=== PATIENT | male | born 1990 | race Caucasian/White ===

== ENCOUNTER 2017-04-14 15:53 | Emergency (ER) | payer BC ==
[~2017-04-14] VITALS: Ht 185.4 cm; Wt 95.0 kg
[~2017-04-14 15:53] MED LIST: HALDOL
[2017-04-14 15:58] VITALS: Ht 185.4 cm; Wt 95.0 kg
--- OUTSIDE RECORDS SUMMARY | 2017-04-14 15:58 | XMS REPORT | Continuity of Care Document ---
Author Author [facility] Organization [facility] Address Unknown Phone Unavailable Support Name Relationship Address Phone GREGG CLEMENT DO Caregiver [facility] [address] [facility] [place] [address] [place] [address] RAMIREZJEN COON Next Of Kin [address] [place] [address] Insurance Providers Payer Name Policy Number Subscriber Name Relationship [facility] [place] [id number] Evelin Vines 20 Son Problems Medical Problems Problem Onset Date Status Renal stones Unknown Active Flank pain Unknown Active Renal stones Unknown Active Renal stones Unknown Active Flank pain Unknown Active Migraine equivalent Unknown Active Migraine equivalent Unknown Active Medications Medication Dose Route Sig Days/Qty Instructions Order Date Discontinued Date Status [Haldol] 7.5 Meq DAILY 09/15/14 Active Social History Social History Problem Response Recorded Date/Time Hx Substance Use No 11/30/2014 4:50pm Hx Alcohol Use No 11/30/2014 4:50pm Tobacco Usage none 09/15/2014 2:18pm Query Response Start Date Stop Date Smoking Status Current every day smoker Hospital Discharge Instructions No hospital discharge instructions. Plan of Care No plan of care. Functional Status Query Response Date Recorded Physical Hygiene Self November 30, 2014 4:50pm Disabilities None November 30, 2014 4:50pm Devices Used None November 30, 2014 4:50pm Dressing Self November 30, 2014 4:50pm Ambulation Self November 30, 2014 4:50pm Diet Self November 30, 2014 4:50pm Mental Status Alert Oriented November 30, 2014 5:51pm Disabilities None November 30, 2014 4:50pm Devices Used None November 30, 2014 4:50pm Physical Hygiene Self November 30, 2014 4:50pm Dressing Self November 30, 2014 4:50pm Ambulation Self November 30, 2014 4:50pm Diet Self November 30, 2014 4:50pm Allergies, Adverse Reactions, Alerts Allergen Type Severity Reaction Status Last Updated No Known Allergies Active 11/30/14 Immunizations Name Given Type Hx Influenza Vaccination No Historical Hx Influenza Vaccination No Historical Vital Signs Acute Vital Signs Vital Response Date/Time Temperature (Fahrenheit) 98.6 deg F (96.8 - 99.1) Temperature (Calculated Celsius) 37.48404 degrees C (36.0 - 37.3) Pulse Rate (adult) 80 bpm (60 - 100) Respiratory Rate 16 breaths/min (10 - 20) O2 Sat by Pulse Oximetry 96 % (90 - 100) Blood Pressure 130/62 mm Hg Height 6 ft 1 in Weight 222 lb Body Mass Index 29.0 kg/m^2 Results Test Source Date Result Interp. Ref. Range Comments Monoscreen November 30, 2014 3:50pm Negative - Alanine Aminotransferase (ALT/SGPT) November 30, 2014 3:50pm 33 U/L N 21- 72 Albumin November 30, 2014 3:50pm 3.9 G/DL N 3.5-5.0 Albumin/Globulin Ratio November 30, 2014 3:50pm 1.5 RATIO N 1.1-2.2 Alkaline Phosphatase November 30, 2014 3:50pm 59 U/L N 38-126 Amylase Level September 15, 2014 1:25pm 56 U/L N 30-110 Anion Gap November 30, 2014 3:50pm 9 MEQ/L N 5-15 Aspartate Amino Transf (AST/SGOT) November 30, 2014 3:50pm 33 U/L N 17- 59 BUN/Creatinine Ratio November 30, 2014 3:50pm 13 RATIO N 6-26 Basophils # (Auto) November 30, 2014 3:50pm 0.2 T/MM3 N 0-0.2 Basophils (%) (Auto) November 30, 2014 3:50pm 3.1 % H 0-2 Blood Urea Nitrogen November 30, 2014 3:50pm 12.0 MG/DL N 9-20 C-Reactive Protein November 30, 2014 3:50pm 28.0 MG/L H 0-9 Calcium Level November 30, 2014 3:50pm 9.1 MG/DL N 8.4-10.2 Calculated Osmolality November 30, 2014 3:50pm 273 MOSM/KG N 261-280 Carbon Dioxide Level November 30, 2014 3:50pm 29 MEQ/L N 22-30 Chemistry Specimen Hemolysis November 30, 2014 3:50pm < 15 0-25 0-25: No Hemolysis.26-70: Slight Hemolysis - can falsely elevate K and Urine Protein. 71-285: Moderate Hemolysis - can falsely elevate K, Troponin I, CA 19-9, PTH, CSF GLucose, and Urine Protein, and can falsely decrease Phenytoin. 286-999: Gross Hemolysis - can falsely elevate K, Troponin I, CA 19-9, PTH, CSF Glucose, and Urine Protine, and can falsely decrease Phenytoin. Recommend specimen recollection. Chloride Level November 30, 2014 3:50pm 104 MEQ/L N 98-107 Creatinine November 30, 2014 3:50pm 0.9 MG/DL N 0.8-1.5 Eosinophils # (Auto) November 30, 2014 3:50pm 0.3 T/MM3 N 0-0.5 Eosinophils (%) (Auto) November 30, 2014 3:50pm 5.1 % H 0-4 Globulin November 30, 2014 3:50pm 2.6 G/DL N 2.4-3.6 Glomerular Filtration Rate Calc November 30, 2014 3:50pm 105 - Glucose Level November 30, 2014 3:50pm 102 MG/DL N 75-110 Hematocrit November 30, 2014 3:50pm 43.8 % N 41-53 Hemoglobin November 30, 2014 3:50pm 15.4 GM/DL N 13.5-17.5 Icterus Index November 30, 2014 3:50pm < 2 0-7 Immature Granulocyte # (Auto) November 30, 2014 3:50pm 0.05 T/MM3 H 0.00- 0.03 Immature Granulocyte % (Auto) November 30, 2014 3:50pm 1.0 % H 0.0-0.5 Lipase September 15, 2014 1:25pm 54 U/L N 23-300 Lymphocytes # (Auto) November 30, 2014 3:50pm 1.3 T/MM3 N 1-4.8 Lymphocytes (%) (Auto) November 30, 2014 3:50pm 26.7 % N 23-45 Mean Corpuscular Hemoglobin November 30, 2014 3:50pm 30.4 UUG N 26-34 Mean Corpuscular Hemoglobin Concent November 30, 2014 3:50pm 35.2 GM/DL N 31-37 Mean Corpuscular Volume November 30, 2014 3:50pm 86.6 UM3 N 80-100 Mean Platelet Volume November 30, 2014 3:50pm 10.2 UM3 N 9.4-12.4 Monocytes # (Auto) November 30, 2014 3:50pm 0.6 T/MM3 N 0-0.8 Monocytes (%) (Auto) November 30, 2014 3:50pm 13.1 % H 0-9.0 Neutrophils # (Auto) November 30, 2014 3:50pm 2.5 T/MM3 N 1.8-7.7 Neutrophils (%) (Auto) November 30, 2014 3:50pm 51.0 % N 33-66 Platelet Count November 30, 2014 3:50pm 171 T/MM3 N 130-400 Potassium Level November 30, 2014 3:50pm 3.8 MEQ/L N 3.6-5 RDW Standard Deviation November 30, 2014 3:50pm 40.1 FL N 36.9-50.2 Red Blood Count November 30, 2014 3:50pm 5.06 M/MM3 N 4.50-5.90 Sodium Level November 30, 2014 3:50pm 142 MEQ/L N 134-144 Total Bilirubin November 30, 2014 3:50pm 0.50 MG/DL N 0.20-1.30 Total Protein November 30, 2014 3:50pm 6.5 G/DL N 6.3-8.2 Turbidity November 30, 2014 3:50pm < 20 0-20 Urinalysis Comment September 16, 2014 9:30am Microscopic not ind. - Has specimen been collected/obtained? Y Urine Bacteria September 15, 2014 2:40pm 2+ H - Has specimen been collected/obtained? Y Urine Bilirubin September 16, 2014 9:30am Negative - Has specimen been collected/obtained? Y Urine Blood September 16, 2014 9:30am Trace-lysed H - Has specimen been collected/obtained? Y Urine Collection Type September 16, 2014 9:30am Voided-not cc-midstr - Has specimen been collected/obtained? Y Urine Color September 16, 2014 9:30am Yellow - Has specimen been collected/obtained? Y Urine Culture Indicated September 15, 2014 2:40pm Cult not indicated - Has specimen been collected/obtained? Y Urine Glucose (UA) September 16, 2014 9:30am Negative - Has specimen been collected/obtained? Y Urine Ketones September 16, 2014 9:30am Negative - Has specimen been collected/obtained? Y Urine Leukocyte Esterase September 16, 2014 9:30am Negative - Has specimen been collected/obtained? Y Urine Nitrite September 16, 2014 9:30am Negative - Has specimen been collected/obtained? Y Urine Protein September 16, 2014 9:30am Negative - Has specimen been collected/obtained? Y Urine RBC September 15, 2014 2:40pm 10-20 /HPF H - Has specimen been collected/obtained? Y Urine Specific [place] September 16, 2014 9:30am >=1.030 H - Has specimen been collected/obtained? Y Urine Squamous Epithelial Cells September 15, 2014 2:40pm 0-5 - Has specimen been collected/obtained? Y Urine Turbidity September 16, 2014 9:30am Clear - Has specimen been collected/obtained? Y Urine Urobilinogen September 16, 2014 9:30am 0.2 EU/DL - Has specimen been collected/obtained? Y Urine WBC September 15, 2014 2:40pm 1-3 /HPF - Has specimen been collected/obtained? Y Urine pH September 16, 2014 9:30am 6.0 - Has specimen been collected/ obtained? Y White Blood Count November 30, 2014 3:50pm 4.9 T/MM3 N 4.5-11.0 Name: DORA VINES Unit #: [id number] : 1990 Sex: M [facility] [place]: ED DOS: 09/15/14 Signed Report #: [id number] DIAGNOSTIC IMAGING REPORT TYPE OF EXAM: CT RENAL W/O CONTRAST Dictated By: MAGALY LAU MD INDICATION: ITS.REASON: left flank pain CT RENAL W/O CONTRAST: Comparison: None Technique: Axial CT images were performed through the abdomen and pelvis without intravenous contrast. Findings: The lung bases are clear. The unenhanced liver is within normal limits. Gallbladder, spleen, pancreas and adrenal glands are within normal limits. Bilateral small nonobstructing renal stones. No hydronephrosis. No ureteral stones. Bladder appears normal. Prostate and rectum are normal. No bowel obstruction. Bone windows are unremarkable. Impression: Bilateral nonobstructing renal stones. No ureteral stones or clear etiology for the patient's left flank pain. There is a preliminary report by virtual radiologic. . Procedures Procedure Status Date Provider(s) HYDRATE IV INFUSION ADD-ON completed 09/15/14 THER/PROPH/DIAG INJ IV PUSH completed 09/15/14 TX/PRO/DX INJ NEW DRUG ADDON completed 09/15/14 HYDRATE IV INFUSION ADD-ON completed 09/16/14 THER/PROPH/DIAG INJ IV PUSH completed 09/16/14 TX/PRO/DX INJ NEW DRUG ADDON completed 09/16/14 Encounters Encounter Location Date/Time Registered Emergency Room [facility] 11/30/14 2:57pm Departed Emergency Room [facility] 09/16/14 7:17am Departed Emergency Room [facility] 09/15/14 1:01pm Recent Diagnosis
--- OUTSIDE RECORDS SUMMARY | 2017-04-14 15:58 | XMS REPORT | Continuity of Care Document ---
Author Author [facility] Organization [facility] Address Unknown Phone Unavailable Support Name Relationship Address Phone SEBAS TATE MD Caregiver [address] [place] [address] [place] [phone] [place] [address] JAMESJEN Next Of Kin [address] [place] [address] Insurance Providers Payer Name Policy Number Subscriber Name Relationship [facility] [id number] Evelin Vines 20 Son Problems Medical Problems Problem Onset Date Status Renal stones Unknown Active Flank pain Unknown Active Renal stones Unknown Active Medications Medication Dose Route Sig Days/Qty Instructions Order Date Discontinued Date Status [Haldol] 5 Meq DAILY 09/15/14 Active [place] Carbonate BEDTIME 09/15/14 Active Ciprofloxacin HCl 1 Tab PO TWICE A DAY 10 Qty 09/15/14 Active Social History Social History Problem Response Recorded Date/Time Smoking Status Heavy Smoker 09/15/2014 1:12pm When did patient START smoking? AGE 16 09/15/2014 1:12pm Hx Substance Use No 09/15/2014 1:12pm Hx Alcohol Use No 09/15/2014 1:12pm Hospital Discharge Instructions No hospital discharge instructions. Plan of Care No plan of care. Functional Status Query Response Date Recorded Physical Hygiene Self September 15, 2014 1:12pm Disabilities None September 15, 2014 1:12pm Devices Used None September 15, 2014 1:12pm Dressing Self September 15, 2014 1:12pm Ambulation Self September 15, 2014 1:12pm Diet Self September 15, 2014 1:12pm Mental Status Alert Oriented September 15, 2014 3:28pm Disabilities None September 15, 2014 1:12pm Devices Used None September 15, 2014 1:12pm Physical Hygiene Self September 15, 2014 1:12pm Dressing Self September 15, 2014 1:12pm Ambulation Self September 15, 2014 1:12pm Diet Self September 15, 2014 1:12pm Allergies, Adverse Reactions, Alerts Allergen Type Severity Reaction Status Last Updated No Known Allergies Active 09/15/14 Immunizations Name Given Type Hx Influenza Vaccination No Historical Hx Influenza Vaccination No Historical Vital Signs Acute Vital Signs Vital Response Date/Time Temperature (Fahrenheit) 97.7 deg F (96.8 - 99.1) Temperature (Calculated Celsius) 36.54148 degrees C (36.0 - 37.3) Pulse Rate (adult) 65 bpm (60 - 100) Respiratory Rate 20 breaths/min (10 - 20) O2 Sat by Pulse Oximetry 97 % (90 - 100) Blood Pressure 120/77 mm Hg Height 6 ft 1 in Weight 222 lb Body Mass Index 29.0 kg/m^2 Results Test Source Date Result Interp. Ref. Range Comments Alanine Aminotransferase (ALT/SGPT) September 15, 2014 1:25pm 31 U/L N 21- 72 Albumin September 15, 2014 1:25pm 4.2 G/DL N 3.5-5.0 Albumin/Globulin Ratio September 15, 2014 1:25pm 1.5 RATIO N 1.1-2.2 Alkaline Phosphatase September 15, 2014 1:25pm 58 U/L N 38-126 Amylase Level September 15, 2014 1:25pm 56 U/L N 30-110 Anion Gap September 15, 2014 1:25pm 13 MEQ/L N 5-15 Aspartate Amino Transf (AST/SGOT) September 15, 2014 1:25pm 30 U/L N 17- 59 BUN/Creatinine Ratio September 15, 2014 1:25pm 12 RATIO N 6-26 Basophils # (Auto) September 15, 2014 1:25pm 0.1 T/MM3 N 0-0.2 Basophils (%) (Auto) September 15, 2014 1:25pm 1.5 % N 0-2 Blood Urea Nitrogen September 15, 2014 1:25pm 12.0 MG/DL N 9-20 Calcium Level September 15, 2014 1:25pm 9.5 MG/DL N 8.4-10.2 Calculated Osmolality September 15, 2014 1:25pm 273 MOSM/KG N 261-280 Carbon Dioxide Level September 15, 2014 1:25pm 25 MEQ/L N 22-30 Chloride Level September 15, 2014 1:25pm 104 MEQ/L N 98-107 Creatinine September 15, 2014 1:25pm 1.0 MG/DL N 0.8-1.5 Eosinophils # (Auto) September 15, 2014 1:25pm 0.3 T/MM3 N 0-0.5 Eosinophils (%) (Auto) September 15, 2014 1:25pm 4.3 % H 0-4 Globulin September 15, 2014 1:25pm 2.8 G/DL N 2.4-3.6 Glucose Level September 15, 2014 1:25pm 101 MG/DL N 75-110 Hematocrit September 15, 2014 1:25pm 49.3 % N 41-53 Hemoglobin September 15, 2014 1:25pm 16.9 GM/DL N 13.5-17.5 Lipase September 15, 2014 1:25pm 54 U/L N 23-300 Lymphocytes # (Auto) September 15, 2014 1:25pm 1.6 T/MM3 N 1-4.8 Lymphocytes (%) (Auto) September 15, 2014 1:25pm 21.7 % L 23-45 Mean Corpuscular Hemoglobin September 15, 2014 1:25pm 30.1 UUG N 26-34 Mean Corpuscular Hemoglobin Concent September 15, 2014 1:25pm 34.3 GM/DL N 31-37 Mean Corpuscular Volume September 15, 2014 1:25pm 87.7 UM3 N 80-100 Mean Platelet Volume September 15, 2014 1:25pm 10.9 UM3 N 9.4-12.4 Monocytes # (Auto) September 15, 2014 1:25pm 0.7 T/MM3 N 0-0.8 Monocytes (%) (Auto) September 15, 2014 1:25pm 9.2 % H 0-9.0 Neutrophils # (Auto) September 15, 2014 1:25pm 4.7 T/MM3 N 1.8-7.7 Neutrophils (%) (Auto) September 15, 2014 1:25pm 63.0 % N 33-66 Platelet Count September 15, 2014 1:25pm 228 T/MM3 N 130-400 Potassium Level September 15, 2014 1:25pm 4.1 MEQ/L N 3.6-5 RDW Standard Deviation September 15, 2014 1:25pm 42.8 FL N 36.9-50.2 Red Blood Count September 15, 2014 1:25pm 5.62 M/MM3 N 4.50-5.90 Sodium Level September 15, 2014 1:25pm 142 MEQ/L N 134-144 Total Bilirubin September 15, 2014 1:25pm 0.90 MG/DL N 0.20-1.30 Total Protein September 15, 2014 1:25pm 7.0 G/DL N 6.3-8.2 Urine Bacteria September 15, 2014 2:40pm 2+ H - Has specimen been collected/obtained? Y Urine Bilirubin September 15, 2014 2:40pm Negative - Has specimen been collected/obtained? Y Urine Blood September 15, 2014 2:40pm 1+ H - Has specimen been collected/ obtained? Y Urine Collection Type September 15, 2014 2:40pm Cleancatch-midstream - Has specimen been collected/obtained? Y Urine Color September 15, 2014 2:40pm Yellow - Has specimen been collected/obtained? Y Urine Culture Indicated September 15, 2014 2:40pm Cult not indicated - Has specimen been collected/obtained? Y Urine Glucose (UA) September 15, 2014 2:40pm Negative - Has specimen been collected/obtained? Y Urine Ketones September 15, 2014 2:40pm Negative - Has specimen been collected/obtained? Y Urine Leukocyte Esterase September 15, 2014 2:40pm Negative - Has specimen been collected/obtained? Y Urine Nitrite September 15, 2014 2:40pm Negative - Has specimen been collected/obtained? Y Urine Protein September 15, 2014 2:40pm Negative - Has specimen been collected/obtained? Y Urine RBC September 15, 2014 2:40pm 10-20 /HPF H - Has specimen been collected/obtained? Y Urine Specific [place] September 15, 2014 2:40pm 1.010 L - Has specimen been collected/obtained? Y Urine Squamous Epithelial Cells September 15, 2014 2:40pm 0-5 - Has specimen been collected/obtained? Y Urine Turbidity September 15, 2014 2:40pm Clear - Has specimen been collected/obtained? Y Urine Urobilinogen September 15, 2014 2:40pm 0.2 EU/DL - Has specimen been collected/obtained? Y Urine WBC September 15, 2014 2:40pm 1-3 /HPF - Has specimen been collected/obtained? Y Urine pH September 15, 2014 2:40pm 7.0 - Has specimen been collected/ obtained? Y White Blood Count September 15, 2014 1:25pm 7.4 T/MM3 N 4.5-11.0 Chemistry Specimen Hemolysis September 15, 2014 1:25pm 55 H 0-25 0-25: No Hemolysis.26-70: Slight Hemolysis - can falsely elevate K and Urine Protein. 71-285: Moderate Hemolysis - can falsely elevate K, Troponin I, CA 19-9, PTH, CSF GLucose, and Urine Protein, and can falsely decrease Phenytoin. 286-999: Gross Hemolysis - can falsely elevate K, Troponin I, CA 19-9, PTH, CSF Glucose, and Urine Protine, and can falsely decrease Phenytoin. Recommend specimen recollection. Turbidity September 15, 2014 1:25pm < 20 0-20 Glomerular Filtration Rate Calc September 15, 2014 1:25pm 93 - Immature Granulocyte # (Auto) September 15, 2014 1:25pm 0.02 T/MM3 N 0.00- 0.03 Immature Granulocyte % (Auto) September 15, 2014 1:25pm 0.3 % N 0.0-0.5 Icterus Index September 15, 2014 1:25pm < 2 0-7 Procedures No known history of procedures. Encounters Encounter Location Date/Time Departed Emergency Room [facility] 09/15/14 1:01pm Recent Diagnosis
--- OUTSIDE RECORDS SUMMARY | 2017-04-14 15:58 | XMS REPORT | Continuity of Care Document ---
Author Author [facility] Address Unknown Phone Unavailable Allergies Active Description Code Type Severity Reaction Onset Reported/Identified Relationship to Patient Clinical Status Yes No Known Drug Allergies [id number] Drug Allergy Unknown N/ A 03/14/2014 Yes No Known Medication Allergies NKMA N/A N/A 10/31/2015 Medications Problems Date Dx Coded Attending Type Code Diagnosis Diagnosed By 03/14/2014 ROBLES TATE, VIKTOR R Ot 493.90 03/14/2014 VIKTOR ARBOLEDA MD R Ot 786.05 05/29/2014 MAYA TATE, MIRANDA P Ot 493.90 05/29/2014 MAYA TATE, MIRANDA P Ot 786.05 04/02/2015 TIMOTHY TATE, MARIE Freeman Ot 724.2 04/02/2015 TIMOTHY TATE, MARIE Freeman Ot 793.7 04/02/2015 TIMOTHY TATE, MARIE Freeman Ot 592.0 04/02/2015 TIMOTHY TATE, MARIE Freeman Ot 722.10 04/16/2015 TIMOTHY TATE, MARIE Freeman Ot 592.0 04/16/2015 TIMOTHY TATE, MARIE Freeman Ot 722.10 04/30/2015 TIMOTHY TATE, MARIE Freeman Ot 724.2 04/30/2015 TIMOTHY TATE, MARIE Freeman Ot 793.7 04/30/2015 TIMOTHY TATE, MARIE Freeman Ot 592.0 04/30/2015 TIMOTHY TATE, MARIE Freeman Ot 722.10 04/30/2015 TIMOTHY TATE, MARIE Freeman Ot 592.0 04/30/2015 TIMOTHY TATE, MARIE Freeman Ot 722.10 03/29/2016 TIMOTHY TTAE, MARIE Freeman Ot 724.2 LUMBAGO 03/29/2016 TIMOTHY TATE, MARIE Freeman Ot 793.7 NOSP (ABN) FINDINGS ON RADIOLOGICAL OT 03/29/2016 TIMOTHY TATE, MARIE Freeman Ot 592.0 CALCULUS OF KIDNEY 03/29/2016 TIMOTHY TATE, MARIE Freeman Ot 722.10 LUMBAR DISC DISPLACEMENT Procedures Results Encounters ACCT No. Visit Date/Time Discharge Status Pt. Type Provider Facility Loc./Unit Complaint [id number] 03/28/2015 12:55:00 2014 23:59:59 CLS Outpatient TIMOTHY TATE, [facility] RAD [id number] 03/25/2015 13:07:00 2014 23:59:59 CLS Outpatient TIMOTHY TATE, [facility] RAD [id number] 05/29/2014 01:53:00 2013 03:52:00 DIS Emergency MAYA TATE, [facility] ED [id number] 03/14/2014 22:24:00 2013 23:46:00 DIS Emergency ROBLES TATE, [facility] ED
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
--- OUTSIDE RECORDS SUMMARY | 2017-04-14 15:58 | XMS REPORT | Referral Summary ---
Author Author [facility], [facility] Care Organization 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 Name Role Phone Nguyen Bo Primary Care Physician [phone] Encounter Date(s): 03/18/16 - 03/18/16 [facility] [address] [place] [address] Discharge Diagnosis: Right shoulder pain Discharge Diagnosis: Strain of acromioclavicular joint Discharge Disposition: 01-Home or Self Care Attending Physician: Ben Morgan PA-C Admitting Physician: Ben Morgan PA-C Vital Signs Most recent to 1 oldest [Reference Range]: Temperature Tympanic 37.5 degC [36.6-38.1 degC] (03/18/16 6:27 PM) Peripheral Pulse 98 bpm Rate [60-100 bpm] (03/18/16 6:27 PM) Blood Pressure 124/60 mmHg [90-140/60-90 mmHg] (03/18/16 6:27 PM) SpO2 97 % (03/18/16 6:27 PM) Problem List Condition Effective Dates Status Health Status Informant Tobacco Active patient user(Confirmed) Allergies, Adverse Reactions, Alerts No Known Medication Allergies Medications Ventolin HFA 2 puffs, Inhalation, QID, as needed for wheezing, 0 Refill(s) Start Date: 10/31/15 Status: Ordered Results No data available for this section Immunizations No data available for this section Procedures No data available for this section Social History Social History Type Response Smoking Status Current every day smoker; Type: Cigarettes Assessment and Plan Extracted from: Title: Right shoulder Author: Ben Morgan PA-C Date: 03/18/16 Assessment/Plan Right shoulder pain NSAID recommended for pain control. Strain of acromioclavicular joint I recommended patient follow-up with his primary care to have imaging performedweighted views of theAC joints. I gave him a note for work recommending no pushing or pulling, heavy lifting with the right arm until assessed by his primary care anticipating within 1 week. Prescribed a Medrol Dosepak. Encouraged him to start perform gentle range of motion exercises but to avoid pushing and pulling until thoroughly assessed. Avoidheavy lifting. We discussed frozen shoulder syndrome.
--- OUTSIDE RECORDS SUMMARY | 2017-04-14 15:58 | XMS REPORT | Continuity of Care Document ---
Author Author [facility] Organization [facility] Address Unknown Phone Unavailable Support Name Relationship Address Phone POLINA TATE MD Caregiver [address] [place] [address] [place] [address] JEN RAMIREZ Next Of [address] [place] [address] Insurance Providers Payer Name Policy Number Subscriber Name Relationship [facility] [id number] Evelin Vines 19 Son Problems Medical Problems Problem Onset Date Status Renal stones Unknown Active Flank pain Unknown Active Renal stones Unknown Active Renal stones Unknown Active Flank pain Unknown Active Medications Medication Dose Route Sig Days/Qty Instructions Order Date Discontinued Date Status [Haldol] 5 Meq DAILY 09/15/14 Active [place] Carbonate 300 Mg PO TWICE A DAY 09/15/14 Active Ciprofloxacin HCl 1 Tab PO TWICE A DAY 10 Qty 09/15/14 Active Hydrocodone/Apap 7.5/325 Mg 1-2 Tab PO Every 6 Hours PRN PAIN 20 Qty Active Ondansetron 4 Mg PO Q6H/0300,0900,1500,2100 20 Qty 09/16/14 Active Social History Social History Problem Response Recorded Date/Time Smoking Status Current every day smoker 09/16/2014 7:30am Hx Substance Use No 09/16/2014 7:30am Hx Alcohol Use No 09/16/2014 7:30am Hospital Discharge Instructions No hospital discharge instructions. Plan of Care No plan of care. Functional Status Query Response Date Recorded Physical Hygiene Self September 16, 2014 7:30am Disabilities None September 16, 2014 7:30am Devices Used None September 16, 2014 7:30am Dressing Self September 16, 2014 7:30am Ambulation Self September 16, 2014 7:30am Diet Self September 16, 2014 7:30am Mental Status Alert Oriented September 16, 2014 7:30am Disabilities None September 16, 2014 7:30am Devices Used None September 16, 2014 7:30am Physical Hygiene Self September 16, 2014 7:30am Dressing Self September 16, 2014 7:30am Ambulation Self September 16, 2014 7:30am Diet Self September 16, 2014 7:30am Allergies, Adverse Reactions, Alerts Allergen Type Severity Reaction Status Last Updated No Known Allergies Active 09/16/14 Immunizations Name Given Type Hx Influenza Vaccination No Historical Hx Influenza Vaccination No Historical Vital Signs Acute Vital Signs Vital Response Date/Time Temperature (Fahrenheit) 97.0 deg F (96.8 - 99.1) Temperature (Calculated Celsius) 36.08184 degrees C (36.0 - 37.3) Pulse Rate (adult) 63 bpm (60 - 100) Respiratory Rate 16 breaths/min (10 - 20) O2 Sat by Pulse Oximetry 98 % (90 - 100) Blood Pressure 122/57 mm Hg Height 6 ft 1 in Weight 217 lb Body Mass Index 28.0 kg/m^2 Results Test Source Date Result Interp. [...] RATIO N 6-26 Basophils # (Auto) September 16, 2014 8:18am 0.1 T/MM3 N 0-0.2 Basophils (%) (Auto) September 16, 2014 8:18am 1.4 % N 0-2 Blood Urea Nitrogen September [...] MG/DL N 0.8-1.5 Eosinophils # (Auto) September 16, 2014 8:18am 0.4 T/MM3 N 0-0.5 Eosinophils (%) (Auto) September 16, 2014 8:18am 5.3 % H 0-4 Globulin September 15, 2014 1:25pm 2.8 G/DL N 2.4-3.6 Glucose Level September 15, 2014 1:25pm 101 MG/DL N 75-110 Hematocrit September 16, 2014 8:18am 45.4 % N 41-53 Hemoglobin September 16, 2014 8:18am 15.5 GM/DL N 13.5-17.5 Lipase September 15, 2014 1:25pm 54 U/L N 23-300 Lymphocytes # (Auto) September 16, 2014 8:18am 1.3 T/MM3 N 1-4.8 Lymphocytes (%) (Auto) September 16, 2014 8:18am 19.8 % L 23-45 Mean Corpuscular Hemoglobin September 16, 2014 8:18am 30.6 UUG N 26-34 Mean Corpuscular Hemoglobin Concent September 16, 2014 8:18am 34.1 GM/DL N 31-37 Mean Corpuscular Volume September 16, 2014 8:18am 89.7 UM3 N 80-100 Mean Platelet Volume September 16, 2014 8:18am 10.2 UM3 N 9.4-12.4 Monocytes # (Auto) September 16, 2014 8:18am 0.6 T/MM3 N 0-0.8 Monocytes (%) (Auto) September 16, 2014 8:18am 8.4 % N 0-9.0 Neutrophils # (Auto) September 16, 2014 8:18am 4.3 T/MM3 N 1.8-7.7 Neutrophils (%) (Auto) September 16, 2014 8:18am 64.6 % N 33-66 Platelet Count September 16, 2014 8:18am 197 T/MM3 N 130-400 Potassium Level September 15, 2014 1:25pm 4.1 MEQ/L N 3.6-5 RDW Standard Deviation September 16, 2014 8:18am 43.0 FL N 36.9-50.2 Red Blood Count September 16, 2014 8:18am 5.06 M/MM3 N 4.50-5.90 Sodium Level September 15, [...] Has specimen been collected/obtained? Y Urine Specific [place] September 16, 2014 9:30am >=1.030 H - [...] collected/ obtained? Y White Blood Count September 16, 2014 8:18am 6.6 T/MM3 N 4.5-11.0 Chemistry Specimen Hemolysis September [...] can falsely decrease Phenytoin. Recommend specimen recollection. Urinalysis Comment September 16, 2014 9:30am Microscopic not ind. - Has specimen been collected/obtained? Y Turbidity September 15, 2014 1:25pm < 20 0-20 Glomerular Filtration Rate Calc September 15, 2014 1:25pm 93 - Immature Granulocyte # (Auto) September 16, 2014 8:18am 0.03 T/MM3 N 0.00- 0.03 Immature Granulocyte % (Auto) September 16, 2014 8:18am 0.5 % N 0.0-0.5 Icterus Index September 15, 2014 1:25pm < 2 0-7 Name: DORA VINES Unit #: [id number] : 1990 Sex: M [facility] [place] DOS: 09/15/14 Signed Report #: [id number] DIAGNOSTIC IMAGING REPORT TYPE OF EXAM: CT [...] pain. There is a preliminary report by [facility]. . Procedures No known history of procedures. Encounters Encounter Location Date/Time Departed Emergency Room [facility] 09/16/14 7:17am Departed Emergency Room [facility] 09/15/14 1:01pm Recent Diagnosis
--- OUTSIDE RECORDS SUMMARY | 2017-04-14 15:58 | XMS REPORT | Referral Summary ---
Author Author [facility], [facility] Care Organization [facility] Address Unknown Phone Unavailable Care Team Providers Care Deposition Reporter Name Role Phone No PCP, States Primary Care Physician [phone] Encounter VC Date(s): 10/31/15 - 10/31/15 [facility] [address] [place] [id number] Discharge Diagnosis: Nasal congestion Discharge Disposition: 01-Home or Self Care Attending Physician: Ben Morgan PA-C Admitting Physician: Ben Morgan PA-C Vital Signs Most recent to 1 oldest [Reference Range]: Temperature Tympanic 36.0 degC [36.6-38.1 degC] *LOW* (10/31/15 7:22 PM) Peripheral Pulse 83 bpm Rate [60-100 bpm] (10/31/15 7:22 PM) Blood Pressure 122/86 mmHg [90-140/60-90 mmHg] (10/31/15 7:22 PM) SpO2 98 % (10/31/15 7:22 PM) Problem List Condition Effective Dates Status Health Status Informant Tobacco Active patient user(Confirmed) Allergies, Adverse Reactions, Alerts No Known Medication Allergies Medications Magic Mouthwash Magic Mouthwash, See Instructions, Magic Mouthwash--Swish 5mL Q 4hrs PRN, # 60 mL, 0 Refill(s), called to pharmacy (Rx), Lidocaine/Benadryl/Maalox mix Start Date: 10/31/15 Status: Ordered Ventolin HFA 2 puffs, Inhalation, QID, as needed for wheezing, 0 Refill(s) Start Date: 10/31/15 Status: Ordered Results No data available for this section Immunizations No data available for this section Procedures No data available for this section Social History Social History Type Response Smoking Status Current every day smoker; Type: Cigarettes Assessment and Plan No data available for this section
--- NOTE | 2017-04-14 16:12 | ERPDOC ---
Departure Disposition Decision Date: April 15, 2017 Disposition Decision Time: 00:00 (MAIKOL SILVA MD) [facility] Impression Impression (OC CUNNINGHAM APRN) Impression: Primary Impression: Depression with suicidal ideation Severity: Moderate (MAIKOL SILVA MD) Condition: Stable Seen By: Physician only (MAIKOL SILVA MD) Referrals: GREGG AGUILAR (Family) Problems/Meds/Labs Reviewed?: Yes Medications reviewed and manag: Yes (MAIKOL SILVA MD) Follow up care ordered?: Yes Mental Status: Alert, Oriented (MAIKOL SILVA MD) HPI - Psychosocial General Chief Complaint: Suicide Ideation/Attempt Stated Complaint: SUICIDE ATTEMPT Time Seen by MD: 16:03 Source: patient Exam Limitations: no limitations (OC CUNNINGHAM APRN) HPI - Psychosocial Initial Comments Patient is brought in today by PD. His father had called the electrical tryout person today because he was cutting himself. He states that he is homeless and has decided that he does not want to live. He has had trouble with depression and anxiety and anger in the past. Has been admitted to [facility] several times in the past and has been on several different medications but nothing seems to help. He does have a superficial laceration on the left forearm and the right anterior calf. Denies any ingestion of ETOH or drugs today. Occurred At: home Onset: Gradual Duration: 12-24 hrs Severity: moderate Associated Symptoms: anxiety, injury, suicidal ideation, DENIES: impaired concentration, ingestion, insomnia (OC CUNNINGHAM APRN) Allergies: Coded Allergies: haloperidol (Verified Allergy, Unknown, 04/14/17) Past History Past Medical History Respiratory: asthma Male: kidney stones Neurological: migraines (OC CUNNINGHAM APRN) Surgical History Denies Surgeries (OC CUNNINGHAM APRN) Family History Family History: Negative Family PMH: FOUND: migraines (OC CUNNINGHAM APRN) Vaccines Hx Influenza Vaccination: No (OC CUNNINGHAM APRN) Social History Smoking Status: Never smoker Substance Use Type: does not use Alcohol Intake: none (OC CUNNINGHAM APRN) Review of Systems Constitutional Constitutional: DENIES: chills, dizziness, fatigue, fever, weakness (NOLD, OC N MILLING OPERATOR) Cardiovascular Cardiac: DENIES: chest pain, orthopnea Rhythm/Rate: DENIES: irregular beat, palpitations (MARISA,OC N MILLING OPERATOR) Pulmonary Respiratory: DENIES: cough, dyspnea, sputum, tachypnea (MARISA,OC N MILLING OPERATOR) GI Upper Abdomen: DENIES: nausea, pain, vomiting Lower Abdomen: DENIES: constipation, diarrhea, pain (MARISA,OC N MILLING OPERATOR) Integumentary Skin: other (abrasions on the left forearm and right anterior calf) (MARISA, OC N MILLING OPERATOR) Neurological General: DENIES: headache, numbness, tingling, weakness (MARISA,OC N MILLING OPERATOR) Physical Exam General General Nourishment: well nourished, well developed, appears stated age, adult , acute distress (slightly agitated) General Body Habitus: well groomed (NERY CUNNINGHAMA N MILLING OPERATOR) Vitals and Pain First Documented Vital Signs Date Time Temp Pulse Resp B/P Pulse Ox O2 Delivery O2 Flow Rate FiO2 04/14/17 15:58 98.3 91 19 146/70 99 Room Air (MAIKOL SILVA MD) Vitals and Pain Weight: Kilograms: Height (feet): 6 Height (inches): 1 Triage Pain Scale: (OC CUNNINGHAM APRN) RN VS reviewed by Provider: Yes (OC CUNNINGHAM APRN) Normal Exams: Neck: Full range of motion, without adenopathy, JVD, bruits or thyromegaly Chest/Resp: Clear all qiu, with good airflow, and symmetry bilaterally CV: Regular rate and rhythm, without murmur or gallop, Pulses 2+ all extremities, capillary refill, <2 seconds all ext., no pedal edema noted Abdomen: Bowel sounds positive, soft, non-tender, non-distended, no hepatosplenomegaly, masses or bruits noted Lymphatic: No lymphadenopathy, or lymphedema noted Musculoskeletal: No tenderness, or deformity noted, good range of motion, all extremities Neurologic: Patient is alert, and oriented Psychiatric: Patient exhibits, appropriate attention, emotion and affect (HARRISESA N MILLING OPERATOR) Integumentary (brief) Integumentary Brief: FOUND: other (Noted abrasion on the left forearm and very superficial laceration on the right anterior calf that are self inflicted. ) ( OC CUNNINGHAM APRN) Differential Diagnoses Considering: Anxiety, Sneha, Suicidal Attempt, Suicidal Ideation (OC CUNNINGHAM APRN) Progress Results/Orders Orders Procedure Category Date Status Time Salicylate LAB 04/14/17 Complete Acetaminophen LAB 04/14/17 Complete Ethanol LAB 04/14/17 Complete Drug Screen LAB 04/14/17 Complete Urine-Test At [facility] Ua, Dip Wreflex LAB 04/14/17 Complete Microsc & Box Car Checker 16:07 Cbc W/Auto LAB 04/14/17 Complete Diff-Reflex Manual Bmp - Basic Metabolic LAB 04/14/17 Complete Panel (MAIKOL SILVA MD) Lab Results Laboratory Tests Test 04/14/17 16:16 04/14/17 20:20 White Blood Count 7.1T/MM3 Red Blood Count 5.27M/MM3 Hemoglobin 15.9GM/DL Hematocrit 45.6% Mean Corpuscular Volume 86.5UM3 Mean Corpuscular Hemoglobin 30.2UUG Mean Corpuscular Hemoglobin Concent 34.9GM/DL RDW Standard Deviation 40.0FL Platelet Count 209T/MM3 Mean Platelet Volume 9.9UM3 Immature Granulocyte % (Auto) 0.3% Neutrophils (%) (Auto) 58.5% Lymphocytes (%) (Auto) 26.8% Monocytes (%) (Auto) 7.3% Eosinophils (%) (Auto) 6.3% Basophils (%) (Auto) 0.8% Absolute Immature Granulocyte (auto 0.02T/MM3 Absolute Neutrophils (auto) 4.1T/MM3 Absolute Lymphocytes (auto) 1.9T/MM3 Absolute Monocytes (auto) 0.5T/MM3 Absolute Eosinophils (auto) 0.5T/MM3 Absolute Basophils (auto) 0.1T/MM3 Turbidity < 20 Sodium Level 145MEQ/L Potassium Level 4.0MEQ/L Chloride Level 105MEQ/L Carbon Dioxide Level 27MEQ/L Anion Gap 13MEQ/L Blood Urea Nitrogen 14.0MG/DL Creatinine 0.9MG/DL Glomerular Filtration Rate Calc 103 BUN/Creatinine Ratio 16RATIO Glucose Level 102MG/DL Calculated Osmolality 280MOSM/KG Calcium Level 9.4MG/DL Icterus Index < 2 Chemistry Specimen Hemolysis < 15 Salicylates Level < 1.0MG/DL Acetaminophen Level < 10UG/ML Alcohol, Quantitative <10MG/DL Urine Collection Type Cleancatch-midstream Urine Color Yellow Urine Turbidity Clear Urine pH 7.0 Urine Specific [place] 1.010 Urine Protein Negative Urine Glucose (UA) Negative Urine Ketones Negative Urine Blood Negative Urine Nitrite Negative Urine Bilirubin Negative Urine Urobilinogen NormalEU/DL Urine Leukocyte Esterase Negative Urinalysis Comment Microscopic not ind. Urine Opiates Screen NegativeNG/ML Urine Oxycodone Screen NegativeNG/ML Urine Methadone Screen NegativeNG/ML Urine Propoxyphene Screen NegativeNG/ML Urine Barbiturates Screen NegativeNG/ML Urine Tricyclic Antidepressants NegativeNG/ML Urine Phencyclidine Screen NegativeNG/ML Urine Amphetamines Screen PositiveNG/ML Urine Methamphetamines Screen NegativeNG/ML Urine Benzodiazepines Screen NegativeNG/ML Urine Cocaine Screen NegativeNG/ML Urine Cannabinoids Screen PositiveNG/ML Urine Drug Screen Confirmation Sent out Urine Drug Screen Information Pending (MAIKOL SILVA MD) Progress Progress [phone] [facility] RN regarding acceptance for admission. Paperwork has all been received. Awaiting accepting physician to call for doc to doc report. [phone] Spoke with [facility] RN. States that he spoke with accepting physician 10 minutes ago and he was going to contact us regarding admission anytime. (OC CUNNINGHAM APRN) Progress Discussed case with Dr. Cagle at [facility] he will accept patient in transfer (MAIKOL SILVA MD) OC CUNNINGHAM APRN April 14, 2017 16:12 MAIKOL SILVA MD April 15, 2017 00:02 MAIKOL SILVA MD April 15, 2017 00:02
--- NOTE | 2017-04-14 16:14 | NUR ---
LAB LAB AT BEDSIDE FOR BLOOD DRAW
--- OUTSIDE RECORDS SUMMARY | 2017-04-14 16:17 | XMS REPORT | Continuity of Care Document ---
Author Author [facility] Organization [facility] Address Unknown Phone Unavailable Support Name Relationship Address Phone POLINA TATE MD Caregiver [address] [place] [address] [place] [address] JEN RAMIREZ Next Of Kin [address] [place] [address] Insurance Providers Payer Name Policy Number Subscriber Name Relationship [facility] [id number] Evelin Vines 19 Son Problems Medical Problems Problem Onset Date Status Renal stones Unknown Active Flank pain Unknown Active Renal stones Unknown Active Renal stones Unknown Active Flank pain Unknown Active Medications Medication Dose Route Sig Days/Qty Instructions Order Date Discontinued Date Status [Haldol] 5 Meq DAILY 09/15/14 Active [place] Carbonate 300 Mg PO TWICE A DAY [...] F (96.8 - 99.1) Temperature (Calculated Celsius) 36.17473 degrees C (36.0 - 37.3) Pulse Rate [...] Has specimen been collected/obtained? Y Urine Specific [place] September 16, 2014 9:30am >=1.030 H - [...] 2 0-7 Name: DORA VINES Unit #: [id number] : 1990 Sex: M [facility] / [facility] [place]: ED DOS: 09/15/14 Signed Report #: [id number] DIAGNOSTIC IMAGING REPORT TYPE OF EXAM: CT [...] pain. There is a preliminary report by [facility]. . Procedures No known history of procedures. Encounters Encounter Location Date/Time Departed Emergency Room [facility] 09/16/14 7:17am Departed Emergency Room [facility] 09/15/14 1:01pm Recent Diagnosis
--- OUTSIDE RECORDS SUMMARY | 2017-04-14 16:17 | XMS REPORT | Continuity of Care Document ---
Author Author [facility] Address Unknown Phone Unavailable Allergies Active Description Code Type Severity Reaction Onset Reported/Identified Relationship to Patient Clinical Status Yes No Known Drug Allergies [id number] Drug Allergy Unknown N/ A 03/14/2014 Yes [...] TATE, MARIE Freeman Ot 722.10 03/29/2016 TIMOTHY TATE, MARIE Freeman Ot 724.2 LUMBAGO 03/29/2016 TIMOTHY TATE, MARIE Freeman Ot 793.7 NOSP (ABN) FINDINGS ON RADIOLOGICAL OT 03/29/2016 TIMOTHY TATE, MARIE Freeman Ot 592.0 CALCULUS OF KIDNEY 03/29/2016 TIMOTHY TATE, MARIE Freeman Ot 722.10 LUMBAR DISC DISPLACEMENT Procedures Results Encounters ACCT No. Visit Date/Time Discharge Status Pt. Type Provider Facility Loc./Unit Complaint [id number] 03/28/2015 12:55:00 2014 23:59:59 CLS Outpatient TIMOTHY TATE, [facility] RAD [id number] 03/25/2015 13:07:00 2014 23:59:59 CLS Outpatient TIMOTHY TATE, [facility] RAD [id number] 05/29/2014 01:53:00 2013 03:52:00 DIS Emergency MAYA TATE, [facility] ED [id number] 03/14/2014 22:24:00 2013 23:46:00 DIS Emergency ROBLES TATE, [facility] ED
--- OUTSIDE RECORDS SUMMARY | 2017-04-14 16:18 | XMS REPORT | Continuity of Care Document ---
Author Author [facility] Organization [facility] Address Unknown Phone Unavailable Support Name Relationship Address Phone GREGG CLEMENT DO Caregiver [facility] [address] [place] [address] [place] [address] RAMIREZJEN COON Next Of Kin [address] [place] [address] Insurance Providers Payer Name Policy Number Subscriber Name Relationship [facility] [id number] Evelin Vines 19 Son Problems Medical Problems [...] F (96.8 - 99.1) Temperature (Calculated Celsius) 37.33178 degrees C (36.0 - 37.3) Pulse Rate [...] Has specimen been collected/obtained? Y Urine Specific [place] September 16, 2014 9:30am >=1.030 H - [...] N 4.5-11.0 Name: DORA VINES Unit #: [id number] : 1990 Sex: M [facility] [place]: [place] DOS: 09/15/14 Signed Report #: [id number] DIAGNOSTIC IMAGING REPORT TYPE OF EXAM: CT [...] Encounters Encounter Location Date/Time Registered Emergency Room [facility] 11/30/14 2:57pm Departed Emergency Room [facility] 09/16/14 7:17am Departed Emergency Room [facility] 09/15/14 1:01pm Recent Diagnosis
--- OUTSIDE RECORDS SUMMARY | 2017-04-14 16:18 | XMS REPORT | Continuity of Care Document ---
Author Author [facility] Organization [facility] Address Unknown Phone Unavailable Support Name Relationship Address Phone SEBAS TATE MD Caregiver [address] [place] [address] [place] [phone] [place] [address] JAMESJEN Next Of Kin [address] [place] [address] Insurance Providers Payer Name Policy Number Subscriber Name Relationship [facility] [id number] Evelin Vines 19 Son Problems Medical Problems Problem Onset Date Status Renal stones Unknown Active Flank pain Unknown Active Renal stones Unknown Active Medications Medication Dose Route Sig Days/Qty Instructions Order Date Discontinued Date Status [Haldol] 5 Meq DAILY 09/15/14 Active [place] Carbonate BEDTIME 09/15/14 Active Ciprofloxacin HCl 1 [...] F (96.8 - 99.1) Temperature (Calculated Celsius) 36.27033 degrees C (36.0 - 37.3) Pulse Rate [...] Has specimen been collected/obtained? Y Urine Specific [place] September 15, 2014 2:40pm 1.010 L - [...] Encounters Encounter Location Date/Time Departed Emergency Room [facility] 09/15/14 1:01pm Recent Diagnosis
[2017-04-14] MEDS ORDERED: ALBU18HF2 INH (16:22)
[2017-04-14] MEDS ORDERED: PIMO1TAB2 PO (16:22)
[2017-04-14 16:24] LABS: BASOPHILS # (AUTO) 0.1 T/MM3 (0-0.2); BASOPHILS % (AUTO) 0.8 % (0-2); EOSINOPHILS # (AUTO) 0.5 T/MM3 (0-0.5); EOSINOPHILS % (AUTO) 6.3 % (0-4); HCT - HEMATOCRIT 45.6 % (41-53); HGB - HEMOGLOBIN 15.9 GM/DL (13.5-17.5); IMMATURE GRANULOCYTE # (AUTO) 0.02 T/MM3 (0.00-0.03); IMMATURE GRANULOCYTE % (AUTO) 0.3 % (0.0-0.5); LYMPHOCYTES # (AUTO) 1.9 T/MM3 (1-4.8); LYMPHOCYTES % (AUTO) 26.8 % (23-45); MEAN CORPUSCULAR HGB 30.2 UUG (26-34); MEAN CORPUSCULAR HGB CONC(MCHC 34.9 GM/DL (31-37); MEAN CORPUSCULAR VOLUME 86.5 UM3 (80-100); MEAN PLATELET VOLUME 9.9 UM3 (9.4-12.4); MONOCYTES # (AUTO) 0.5 T/MM3 (0-0.8); MONOCYTES % (AUTO) 7.3 % (0-9.0); NEUTROPHILS #(AUTO)-ABSOLUTE 4.1 T/MM3 (1.8-7.7); NEUTROPHILS % (AUTO) 58.5 % (33-66); RED BLOOD COUNT 5.27 M/MM3 (4.50-5.90); WBC - WHITE BLOOD COUNT 7.1 T/MM3 (4.5-11.0)
[2017-04-14 16:36] LABS: ACETAMINOPHEN < 10 UG/ML (10-30); ANION GAP 13 MEQ/L (5-15); BUN/CREATININE RATIO 16 RATIO (6-26); CALCIUM 9.4 MG/DL (8.4-10.2); CHLORIDE 105 MEQ/L (98-107); CO2 - CARBON DIOXIDE 27 MEQ/L (22-30); CREATININE 0.9 MG/DL (0.8-1.5); ETHANOL <10 MG/DL (<10); GLOMERULAR FILTRATION RATE 103; GLUCOSE 102 MG/DL (75-110); SALICYLATE < 1.0 MG/DL (2-20); SODIUM 145 MEQ/L (134-144)
--- NOTE | 2017-04-14 17:15 | NUR ---
DORENE FABIAN VIEW SCREENER AT BEDSIDE TO SEE PATIENT.
--- NOTE | 2017-04-14 17:51 | NUR ---
UPDATE PATIENT SITTING UP TO EDGE OF BED. PATIENT IS ANGRY THAT HE IS HAVING TO GO TO [place]. PATIENT IS BEGINNING TO CURSE AND THROW THINGS. PATIENT REQUESTS A CIGARRETTE, PATIENT ADVISED THAT HE CAN NOT SMOKE, RN OFFERS NICOTINE PATCH AND PATIENT REFUSES.
--- NOTE | 2017-04-14 19:51 | NUR ---
UPDATE PATIENT LYING IN BED SLEEPING.
--- NOTE | 2017-04-14 20:18 | NUR ---
ACTIVITY PATIENT AMBULATORY TO RESTROOM, ACCOMPANIED BY LAB PERSONNEL TO PROVIDE UA/UDS. PATIENT TOLERATES ACTIVITY WELL. PATIENT BEING COOPERATIVE AT THIS TIME.
[2017-04-14 20:37] LABS: COLOR,URINE YELLOW (YELLOW)
[2017-04-14 20:39] LABS: BLOOD, URINE NEGATIVE (NEGATIVE); LEUKOCYTE ESTERASE ,URINE NEGATIVE (NEGATIVE); NITRITE,URINE NEGATIVE (NEGATIVE); UROBILINOGEN,URINE NORMAL (NORMAL)
[2017-04-14 20:42] LABS: AMPHETAMINE SCREEN,URINE POSITIVE; BARBITURATE SCREEN,URINE NEGATIVE; BENZODIAZEPINES SCREEN,URINE NEGATIVE; CANNABINOID SCREEN,URINE POSITIVE; COCAINE SCREEN,URINE NEGATIVE; METHADONE SCREEN, URINE NEGATIVE; METHAMPHETAMINE SCREEN, URINE NEGATIVE; OPIATE SCREEN,URINE NEGATIVE; PHENCYCLIDINE SCREEN,URINE NEGATIVE; TRICYCLIC ANTIDEPRESSANT,URINE NEGATIVE
--- NOTE | 2017-04-14 20:55 | NUR ---
report recieved report from preet mejia
--- NOTE | 2017-04-14 22:00 | NUR ---
STATUS PT IS RESTING ON CART COVERED WITH A BLANKET.
--- NOTE | 2017-04-14 23:00 | NUR ---
STATUS PT REMAINS ON THE CART SLEEPING WITH EYES CLOSED
--- NOTE | 2017-04-15 | NUR ---
[facility] CONTACTED [facility]PS FOR TRANSFER TO [facility]
--- NOTE | 2017-04-15 00:10 | NUR ---
STATUS ATTEMPTED TO CALL REPORT TO [facility] RN TO RN. NURSE AT [facility] TOOK MY PHONE NUMBER TO CALL ME BACK
--- NOTE | 2017-04-15 01:10 | NUR ---
REPORT GURVINDER SINGLETON FROM [facility] CALLED BACK FOR REPORT. REPORTS GIVEN. INFORMED HER [facility]PS IS HERE NOW AND WILL BE LEAVING WITHIN 5 MINUTES
[2017-04-15 01:15] VITALS: BP 141/63; PULSE 76; RESP 18; TEMP 98.7; O2SAT 99
--- NOTE | 2017-04-15 01:15 | NUR ---
TRANSFER [facility]PLETE [facility] IS HERE. REPORT IS GIVEN. PT LEAVES IN HOSPITAL GOWN. BAG OF CLOTHING SMELLS VERY BAD. PT BELONGING BAG GIVEN TO [facility]. [facility]. PT IS COOPERATIVE AT THIS TIME
== END 2017-04-15 01:15 ==
LOC: ED 15:53
DX: S51.812A Laceration without foreign body of left forearm, initial encounter (principal); S81.811A Laceration without foreign body, right lower leg, initial encounter; F41.8 Other specified anxiety disorders; Z79.899 Other long term (current) drug therapy; X78.9XXA Intentional self-harm by unspecified sharp object, initial encounter; Y93.89 Activity, other specified; Y92.009 Unspecified place in unspecified non-institutional (private) residence as the place of occurrence of the external cause; Y99.8 Other external cause status
CPT/HCPCS: 36415; 80048; 80306; 80307; 81003; 85025